=== PATIENT | male | born 1990 | race Caucasian/White ===

== ENCOUNTER → 2017-11-23 14:35 | Outpatient (CLI) | payer BC, SELFPAY ==
[2017-11-23 16:00] LABS: Anion Gap 10 (5-15); BUN 15 mg/dL (7-18); BUN/Creat Ratio 14.3 RATIO (10-20); Calcium,Total 8.7 mg/dL (8.5-10.1); Chloride 105 mmol/L (98-107); Cholesterol 205 mg/dL (200); Creatinine, Serum 1.05 mg/dL (0.70-1.30); EST Glomerular Filtration Rate 91 mL/min (>60); Est Glom Filt Rate - Afr Amer 110 mL/min (>60); Glucose 103 mg/dL (74-106); High Density Lipoprotein 50 mg/dL; Potassium 3.6 mmol/L (3.5-5.1); Sodium Level 142 mmol/L (136-145); Triglycerides 169 mg/dL; Very Low Density Lipoprotein 34 mg/dL (5-40)
== END ==
PROVIDERS: Family Provider Family Medicine; PCP Family Medicine; Visit Provider Family Medicine
DX: Z00.00 Encounter for general adult medical examination without abnormal findings (principal)
CPT/HCPCS: 36415; 80048; 80061

== ENCOUNTER → 2023-02-11 | Outpatient (CLI) | payer BC, SELFPAY ==
[2023-02-11 18:30] LABS: Anion Gap 6 (5-15); BUN 23 mg/dL (7-18); BUN/Creat Ratio 18.5 RATIO (10-20); Calcium,Total 9.1 mg/dL (8.5-10.1); Chloride 106 mmol/L (98-107); Cholesterol 215 mg/dL (200); Creatinine, Serum 1.24 mg/dL (0.70-1.30); EST Glomerular Filtration Rate 72 mL/min (>60); Est Glom Filt Rate - Afr Amer 87 mL/min (>60); Glucose 95 mg/dL (74-106); High Density Lipoprotein 56 mg/dL; Sodium Level 139 mmol/L (136-145); Triglycerides 162 mg/dL; Very Low Density Lipoprotein 32 mg/dL (5-40)
== END | disposition home or self-care (01) ==
LOC: MFPLAB 14:38
PROVIDERS: PCP Family Medicine; Visit Provider Family Medicine
DX: Z00.00 Encounter for general adult medical examination without abnormal findings (principal)
CPT/HCPCS: 36415; 80048; 80061

== ENCOUNTER → 2025-01-26 | Outpatient (CLI) | payer OTHER, SELFPAY ==
[2025-01-26 18:23] LABS: Anion Gap 14 (5-15); BUN 21 mg/dL (4-19); BUN/Creat Ratio 18.3 RATIO (10-20); Calcium,Total 9.7 mg/dL (7.6-11.0); Carbon Dioxide 23.5 mmol/L (21.0-32.0); Chloride 100 mmol/L (98-108); Cholesterol 262 mg/dL (<=200); Glucose 85 mg/dL (70-99); Low Density Lipoprotein Calc. 184 mg/dL; Potassium 3.8 mmol/L (3.3-5.1); Triglycerides 79 mg/dL; Very Low Density Lipoprotein 16 mg/dL (5-40); cholesterol:hdl ratio screen 4.25
== END | disposition home or self-care (01) ==
LOC: MFPLAB 16:34
PROVIDERS: PCP Family Medicine; Referring Provider Family Medicine; Visit Provider Family Medicine
DX: Z00.00 Encounter for general adult medical examination without abnormal findings (principal)
CPT/HCPCS: 36415; 80048; 80061

== ENCOUNTER → 2025-04-13 | Outpatient (CLI) | payer OTHER, SELFPAY ==
--- NOTE | 2025-04-13 16:05 | RAD_ITS ---
PROCEDURE: CHEST PA AND LATERAL 04/13/2025 REASON FOR EXAM: CHEST PAIN X 2 MONTHS TECHNIQUE: Procedure Code: RADCXR Modality: DX Procedure: CHEST PA AND LATERAL COMPARISON: None. FINDINGS: The lungs are clear. The heart borders mediastinum and pulmonary vascular pattern are normal. The upper abdominal bowel gas pattern is normal. There are no bony abnormalities of the chest. RAD/Chest PA and Lateral IMPRESSION: No evidence of acute cardiopulmonary pathology. Reading Location: [place] [id number]
[2025-04-13 17:58] LABS: Hematocrit 43.1 % (40-54); Hemoglobin 15.6 g/dL (13.0-16.5); Immature Granulocytes Count 0.010 X10^3/uL (0.0-0.0); Mean Corp Hgb Conc 36.2 g/dL (32-36); Mean Corpuscular Volume 84.2 fL (80-94); Mean Platelet Vol. 11.4 fl (6.2-12.0); NRBC Flagged by Analyzer 0 % (0-5); Platelet Count 221 K/mm3 (150-450); RBC Distribution Width CV 11.7 % (11.6-14.6); RBC Distribution Width SD 35.5 fl (35.1-43.9); Red Blood Count 5.12 M/mm3 (4.6-6.2); White Blood Count 6.0 K/mm3 (4.4-11.0)
[2025-04-13 18:06] LABS: Anion Gap 13 (5-15); BUN 14 mg/dL (4-19); BUN/Creat Ratio 12.6 RATIO (10-20); Calcium,Total 9.7 mg/dL (7.6-11.0); Carbon Dioxide 25.7 mmol/L (21.0-32.0); Chloride 101 mmol/L (98-108); Glucose 94 mg/dL (70-99); Potassium 4.3 mmol/L (3.3-5.1)
[2025-04-13 18:38] LABS: D-Dimer Quantitative (DVT/PE) 0.27 FEU/ug/m (0.27-0.49)
== END | disposition home or self-care (01) ==
LOC: MTLAB 16:03
PROVIDERS: PCP Family Medicine; Referring Provider Family Medicine; Visit Provider Family Medicine
DX: R07.9 Chest pain, unspecified (principal)
CPT/HCPCS: 36415; 71046; 80048; 85025; 85379

== ENCOUNTER → 2025-04-13 | Outpatient (CLI) | payer OTHER, SELFPAY ==
--- OUTSIDE RECORDS SUMMARY | 2025-04-13 16:45 | XMS RPT_ITS | CCD ---
Author Organization [facility] ion Partnership [facility] Care Team Providers Care Interactive Multimedia Designer Name Role Phone JORDAN MURO Unavailable Unavaila JULIETA Conway Attending Unavailable INC, [facility] Unavailable Davon VASQUEZ, Dr. Carr Primary Care Provider Davon VASQUEZ, Dr. Carr Attending Provider [phone] Davon VASQUEZ, Dr. Carr Referring Provider [phone] Bruno Mays Referring Unavailable Bruno Mays Attending Bruno oYung Primary Care Unavailable Allergies Allergy Classification Reported Allergen(s) Allergy Type Date of Onset Reaction(s) Facility (1 source) CHLORPHENIRAM-DM -ACETAMINOPHEN; Translations: [CHLORPHENIRAM-D M-ACETAMINOPHEN] Propensity to adverse reactions to drug (disorder) 8 [facility] Other [place] Repository Problems Problem Classification Problem Date Documented Da te Episodic/Chronic Coagulation and hemorrhagic disorders (2 sources) Homozygous Factor V Leiden mutation; 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 Nonspecific chest pain (1 source) Chest pain, unspecified; Translations: [Chest pain, unspecified] Onset: 01-09-2018 Episodic Skin and subcutaneous tissue infections (4 sources) Cellulitis of right lower limb; Translations: [Cutaneous abscess of right lower limb] Onset: 01-15-2023 Episodic Results Test Name Value Interpretation Reference Range Facility Anion gap in Serum or Plasma Ordered By: Bruno Mays on 01-26-2025 Anion gap [Moles/Vol] 14 mmol/L 12-01 [facility] BUN/creatinine ratioOrdered By: Bruno Mays on 01-26-2025 Urea nitrogen/Creatinine [Mass ratio] 18.3 mg/mg 05-08 [facility] Basic Metabolic Profile (BMP )on 01-26-2025 BUN/CRE 18.3 RATIO Normal 05-08 [facility] Comment on above: Performed By: #### L 500.2500, L500.4100 #### [facility] [address] [place], [address] Calcium [Mass/Vol] 9.7 mg/dL Normal 7.6-11.0 [facility] Comment on above: Performed By: #### L 500.2500, L500.4100 #### [facility] [address] [place], [address] Chloride [Moles/Vol] 100 mmol/L Normal 98-108 [facility] Comment on above: Performed By: #### L 500.2500, L500.4100 #### [facility] [address] [place], [address] CO2 [Moles/Vol] 23.5 mmol/L Normal 21.0-32.0 [facility] Comment on above: Performed By: #### L 500.2500, L500.4100 #### [facility] [address] [place], [address] Creatinine [Mass/Vol] 1.16 mg/dL Normal 0.70-1.20 [facility] Comment on above: Performed By: #### L 500.2500, L500.4100 #### [facility] [address] [place], [address] GAP 14 Normal 5-15 [facility] Comment on above: Performed By: #### L 500.2500, L500.4100 #### [facility] [address] [place], [address] GFR/1.73 sq M.predicted among non-blacks MDRD (S/P/Bld) [Vol rate/Area] 85 mL/min/{1.73_m2} Normal >60 [facility] Comment on above: Result Comment: mL/m in/1.73m2 CKD-EPI Creatinine Equation (2020) Performed By: #### L 500.2500, L500.4100 #### [facility] [address] [place], [address] Glucose [Mass/Vol] 85 mg/dL Normal 70-99 [facility] Comment on above: Performed By: #### L 500.2500, L500.4100 #### [facility] [address] [place], [address] Potassium [Moles/Vol] 3.8 mmol/L Normal 3.3-5.1 [facility] Comment on above: Performed By: #### L 500.2500, L500.4100 #### [facility] [address] [place], [address] Sodium [Moles/Vol] 137 mmol/L Normal 133-145 [facility] Comment on above: Performed By: #### L 500.2500, L500.4100 #### [facility] [address] [place], [address] Urea nitrogen [Mass/Vol] 21 mg/dL High 4-19 [facility] Comment on above: Performed By: #### L 500.2500, L500.4100 #### [facility] [address] [place], [address] Calculated very low density lipoprotein (VLDL) cholesterol measurementOrdered By: Bruno Mays on 01-26-2025 Calculated very low density lipoprotein (VLDL) cholesterol measurement 16 mg/dL 5-40 [facility] Carbon dioxide, total [Moles /volume] in Central venous bloodOrdered By: Bruno Mays on 01-26-2025 CO2 [Moles/Vol] 23.5 mmol/L 21.0-32.0 [facility] Chloride assayOrdered By: Macario Mays on 01-26-2025 Chloride [Moles/Vol] 100 mmol/L 98-108 [facility] Glomerular filtration rate ( GFR) estimation/1.73 sq m using serum, plasma, or whole bOrdered By: Bruno Mays on 01-26-2025 GFR/1.73 sq M.predicted among non-blacks MDRD (S/P/Bld) [Vol rate/Area] 85 mL/min/{1.73_m2} >60 [facility] Comment on above: mL/min/1.73m2 CKD-EP I Creatinine Equation (2020) LDL calc ser/plasOrdered By: Bruno Mays on 01-26-2025 Cholesterol in LDL [Mass/Vol] 184 mg/dL [facility] Comment on above: Qzkgnltohm=499-651 m g/dL & Higher Luba=547 mg/dL or greater Lipid Profileon 01-26-2025 CHOL:HDL 4.25 Normal [facility] Comment on above: Performed By: #### L 500.2500, L500.4100 #### [facility] [address] [place], [place], [phone] ([phone]) Cholesterol [Mass/Vol] 262 mg/dL High <=200 [facility] Comment on above: Result Comment: Chol esterol level, Desirable <200 mg/dL Borderline high cholesterol 200-239 mg/dL High cholesterol >=240 mg/dL Recommendations of the NCEP Adult Treatment Panel for the following risk-cutoff thresholds for the [place] Stateless population. Performed By: #### L 500.2500, L500.4100 #### [facility] [address] [place], [place], [phone] (634) Cholesterol in HDL [Mass/Vol] 62 mg/dL Normal [facility] Comment on above: Result Comment: Tammy onal Cholesterol Education Program (NCEP) guidelines: <40 mg/dL: Low HDL-cholesterol (major risk factor for CHD) >= 60 mg/dL: High HDL-cholesterol (negative risk factor for CHD) HDL-cholesterol is affected by a number of factors, e.g. smoking, exercise, hormones, sex and age. Performed By: #### L 500.2500, L500.4100 #### [facility] [address] [place], [place], [phone]) Cholesterol in LDL [Mass/Vol] 184 mg/dL Normal [facility] Comment on above: Result Comment: Bord wztsni=176-778 mg/dL Higher Ozcv=232 mg/dL or greater Performed By: #### L 500.2500, L500.4100 #### [facility] [address] [place], [address] Cholesterol in VLDL [Mass/Vol] 16 mg/dL Normal 5-40 [facility] Comment on above: Performed By: #### L 500.2500, L500.4100 #### [facility] [address] [place], [address] Triglyceride [Mass/Vol] 79 mg/dL Normal [facility] Comment on above: Result Comment: The drugs N-Acetylcysteine and Metamizole may falsely depress this assay. Normal range: <150 mg/dL Borderline High: 150-199 mg/dL High: 200-499 mg/dL Very High: >500 mg/dL Performed By: #### L 500.2500, L500.4100 #### [facility] [address] [place], [address] Potassium measurement (mass/ volume)Ordered By: Bruno Mays on 01-26-2025 Potassium (Unsp spec) [Mass/Vol] 3.8 mmol/L 3.3-5.1 [facility] Screening total cholesterol/ high density lipoprotein (HDL) cholesterol ratioOrdered By: Bruno Mays on 01-26-2025 Cholesterol.total/Cho lesterol in HDL [Mass ratio] 4.25 {ratio} [facility] Serum creatinine measurement (mass/volume)Ordered By: Bruno Mays on 01-26-2025 Creatinine [Mass/Vol] 1.16 mg/dL 0.70-1.20 [facility] Serum glucose measurement (m ass/volume)Ordered By: Bruno Mays on 01-26-2025 Glucose [Mass/Vol] 85 mg/dL 70-99 [facility] Serum or plasma calcium sourav urement (mass/volume)Ordered By: Bruno Mays on 01-26-2025 Calcium [Mass/Vol] 9.7 mg/dL 7.6-11.0 [facility] Serum or plasma cholesterol in HDL measurement (mass/volume)Ordered By: Bruno Mays on 01-26-2025 Cholesterol in HDL [Mass/Vol] 62 mg/dL >40 [facility] Comment on above: National Cholesterol Education Program (NCEP) guidelines:<40 mg/dL: Low HDL-cholesterol (major risk factor for CHD)>= 60 mg/dL: High HDL-cholesterol (negative risk factor for CHD)HDL-cholesterol is affected by a number of factors, e.g. smoking, exercise, hormones, sex and age. Serum or plasma cholesterol measurement (mass/volume)Ordered By: Bruno Mays on 01-26-2025 Cholesterol [Mass/Vol] 262 mg/dL High <201 [facility] Comment on above: Cholesterol level, D esirable <200 mg/dLBorderline high cholesterol 200-239 mg/dLHigh cholesterol >=240 mg/dLRecommendations of the NCEP Adult Treatment Panel for the following risk-cutoff thresholds for the [place] Stateless population. Serum or plasma urea nitroge n measurement (mass/volume)Ordered By: Bruno Mays on 01-26-2025 Urea nitrogen [Mass/Vol] 21 mg/dL High 4-19 [facility] Sodium levelOrdered By: Bruno Mays on 01-26-2025 Sodium [Moles/Vol] 137 mmol/L 133-145 [facility] Triglycerides measurementOrd ered By: Bruno Mays on 01-26-2025 Triglyceride [Mass/Vol] 79 mg/dL <199 [facility] Comment on above: The drugs N-Acetylcy steine and Metamizole may falsely depress this assay. Normal range: <150 mg/dLBorderline High: 150-199 mg/dLHigh: 200-499 mg/dLVery High: >500 mg/dL Basophil percentageOrdered B y: Bruno Mays on 02-11-2023 Chloride [Moles/Vol] 106 mmol/L 98-107 [facility] Cholesterol [Mass/Vol] 215 mg/dL <200 [facility] Comment on above: <200 mg/dL Desirable 200-240 mg/dL Borderline >240 mg/dL High Risk Glucose [Mass/Vol] 95 mg/dL 74-106 [facility] Potassium [Moles/Vol] 4.0 mmol/L 3.5-5.1 [facility] Sodium [Moles/Vol] 139 mmol/L 136-145 [facility] Triglyceride [Mass/Vol] 162 mg/dL <199 [facility] Comment on above: The drugs N-Acetylcy steine and Metamizole may falsely depress this assay.Serum Triglycerides Reference Interval Normal <150 mg/dL Borderline high 150 - 199 mg/dL High 200 - 499 mg/dL Very High > or = 500 mg/dL Laboratory - Chemistry and C hemistry - challengeOrdered By: Bruno Mays on 02-11-2023 CO2 [Moles/Vol] 27.0 mmol/L 21.0-32.0 [facility] Urea nitrogen/Creatinine [Mass ratio] 18.5 mg/mg 10-20 [facility] No Panel InformationOrdered By: Bruno Mays on 02-11-2023 Estimated GFR (MDRD) Amer 87 mL/min >60 [facility] Comment on above: GFR Calc Estimated GFR (MDRD) Non-Af Amer 72 mL/min >60 [facility] Comment on above: Non- GFR Calc Serum or plasma calcium sourav urement (mass/volume)Ordered By: Bruno Mays on 02-11-2023 Calcium [Mass/Vol] 9.1 mg/dL 8.5-10.1 [facility] Serum or plasma cholesterol in HDL measurement (mass/volume)Ordered By: Bruno Mays on 02-11-2023 Cholesterol in HDL [Mass/Vol] 56 mg/dL >40 [facility] Comment on above: The drugs N-Acetylcy steine and Metamizole may falsely depress this assay. Reference Range HDL <40 mg/dL Low HDL Cholesterol HDL >or= 60 mg/dL High HDL Cholesterol Serum or plasma cholesterol in VLDL measurement (mass/volume)Ordered By: Bruno Mays on 02-11-2023 Cholesterol in VLDL [Mass/Vol] 32 mg/dL 5-40 [facility] Serum or plasma creatinine m easurement (mass/volume)Ordered By: Bruno Mays on 02-11-2023 Creatinine [Mass/Vol] 1.24 mg/dL 0.70-1.30 [facility] Comment on above: The validity of the calculated GFR & GFRAA in patients over 70 years has not been determined. Clinical correlation is essential. Serum or plasma low density lipoprotein (LDL) cholesterol measurement (mass/volume)Ordered By: Bruno Mays on 02-11-2023 Cholesterol in LDL [Mass/Vol] 127 mg/dL 0-130 [facility] Serum or plasma urea nitroge n measurement (mass/volume)Ordered By: Bruno Mays on 02-11-2023 Urea nitrogen [Mass/Vol] 23 mg/dL 7-18 [facility] Thin prep Papanicolaou smear with manual screeningOrdered By: Bruno Mays on 02-11-2023 Thin prep Papanicolaou smear with manual screening 6 5-15 [facility] Office Visiton 01-15-2023 Follow-up visit [id number] FloresPiedad morris kamran 1990 M Date Provider Department Center 01/15/2023 [id number] CASTILLO [facility]IR None No family history on file Level of Service:[address] [place] OFFICE/OUTPATIENT [facility] 30-44 MINUTES Reason for Visit and Comments: Abscess Drainage [618] - Painful, on leg, first noticed 4 days ago. Feels numb/tingly Normal [facility] PATINSon 01-15-2023 PATINS If you develop any worsening/severe pain, fever or chills, increasing redness or swelling - please be evaluated in the emergency room immediately Ok for warm compress 2x daily Cleans daily with soap and water, apply bacitracin ointment Normal [facility] Progress Noteon 01-15-2023 Progress Note Chief Complaint Patient presents with Abscess Drainage Painful, on leg, first noticed 4 days ago. Feels numb/tingly No LMP for male patient. History: No past medical history on file. No past surgical history on file. No family history on file. Social History Socioeconomic History Marital status: Single Tobacco Use Smoking status: Never Smokeless tobacco: Never Vaping Use Vaping Use: Never used Allergies: No Known Allergies Medications: Current Outpatient Medications on File Prior to Visit Medication Sig Dispense Refill aspirin 325 MG tablet Take 325 mg by mouth daily. loratadine (Claritin) 10 MG tablet Take by mouth. No current facility-administered medications on file prior to visit. HPI: HPI Wound on L calf Has been a little bump there for like 1 year Never thought anything of it 4 days ago, fluid came out it Then got worse Went from being very small to much bigger and red Now feels a little numb and tingling ROS: Review of Systems Constitutional: Negative for chills and fever. Skin: Positive for color change and wound. exam: BP (!) 141/85 Pulse 88 Temp 37 ?C (98.6 ?F) (Oral) Ht 6' (1.829 m) Wt 180 lb (81.6 kg) SpO2 96% BMI 24.41 kg/m? Physical Exam Vitals reviewed. Constitutional: General: He is not in acute distress. Appearance: Normal appearance. He is not ill-appearing, toxic-appearing or diaphoretic. HENT: Head: Normocephalic and atraumatic. Cardiovascular: Rate and Rhythm: Normal rate. Pulmonary: Effort: No respiratory distress. Musculoskeletal: General: Tenderness present. Skin: General: Skin is warm and dry. Capillary Refill: Capillary refill takes less than 2 seconds. Findings: Erythema and lesion present. No rash. Comments: R posterior calf with ~ 1cm warm, fluctuant lesion with surrounding induration and erythema Mildly TTP. Neurological: Mental Status: He is alert and oriented to person, place, and time. Assessment and Plan: Daniela was seen today for abscess drainage. Diagnoses and all orders for this visit: Cellulitis and abscess of right lower extremity (Primary) - doxycycline (Vibra-Tabs) 100 MG tablet; Take 1 tablet (100 mg) by mouth 2 times daily for 7 days. Diagnosis: abscess - Location: R calf Procedure: Incision & drainage Informed consent: Discussed risks (infection, pain, bleeding, bruising, numbness, and recurrence of the condition) and benefits of the procedure, as well as the alternatives. Informed consent was obtained. Anesthesia: topical ethyl chloride The area was prepared and draped in a standard fashion. Area was cleaned with betadine and alcohol. 11 blade scalpel used to make ~0.3mm incision. The lesion drained pus and blood. The patient tolerated the procedure well. The patient was instructed on post-op care and s/s that would require emergency room evaluation. Rx for doxycycline sent to pharmacy. Normal [facility] CBC and Differentialon 01-09 Abs Baso <0.03 Normal <0.11 [facility] Comment on above: Performed By: #### D DMER, CMP, CBCDIF ####[facility] [address] [place], [place] [phone] Abs Imperial 1.01 k/uL High <0.87 [facility] Comment on above: Performed By: #### D DMER, CMP, CBCDIF ####[facility] [address] [place] [address] Abs Neut 2.43 k/uL Normal 1.45-7.50 [facility] Comment on above: Performed By: #### D DMER, CMP, CBCDIF ####[facility] [address] [place] [address] Basophils/100 WBC Auto (Bld) 0.2 % Normal [facility] Comment on above: Performed By: #### D DMER, CMP, CBCDIF ####[facility] [address] [place] [address] Eosinophils 0.03 10*3/uL Normal <0.46 [facility] Comment on above: Performed By: #### D DMER, CMP, CBCDIF ####[facility] [address] [place] [address] Eosinophils/100 leukocytes 0.7 % Normal [facility] Comment on above: Performed By: #### D DMER, CMP, CBCDIF ####[facility] [address] [place] [address] Erythrocyte distribution width Auto Ratio (RBC) 12.2 % Normal 11.5-15.0 [facility] Comment on above: Performed By: #### D DMER, CMP, CBCDIF ####[facility] [address] [place] [address] Erythrocytes (RBC) 5.08 10*6/uL Normal 4.20-6.00 [facility] Comment on above: Performed By: #### D DMER, CMP, CBCDIF ####[facility] [address] [place] [address] Hematocrit (HCT) 40.8 % Normal 39.0-51.0 [facility] Comment on above: Performed By: #### D DMER, CMP, CBCDIF ####[facility] [address] [place] [address] Hemoglobin mass conc (Bld) 15.3 g/dL Normal 13.0-17.0 [facility] Comment on above: Result Comment: Rech ecked Performed By: #### D DMER, CMP, CBCDIF ####[facility] [address] [place] [address] Lymphocytes 1.00 10*3/uL Normal 1.00-4.00 [facility] Comment on above: Performed By: #### D DMER, CMP, CBCDIF ####[facility] [address] [place] [address] Lymphocytes/100 leukocytes 22.3 % Normal [facility] Comment on above: Performed By: #### D DMER, CMP, CBCDIF ####[facility] [address] [place] [address] MCH 30.1 pG Normal 26.0-34.0 [facility] Comment on above: Performed By: #### D DMER, CMP, CBCDIF ####[facility] [address] [place] [address] MCHC mass conc (RBC) 37.5 g/dL High 30.5-36.0 [facility] Comment on above: Performed By: #### D DMER, CMP, CBCDIF ####[facility] [address] [place] [address] MCV 80.3 fL Normal 80.0-100.0 [facility] Comment on above: Performed By: #### D DMER, CMP, CBCDIF ####[place] [address] Monocytes/100 leukocytes 22.5 % Normal [facility] Comment on above: Performed By: #### D DMER, CMP, CBCDIF ####[facility] [address] [place] [address] Neutrophils/100 WBC Auto (Bld) 54.3 % Normal [facility] Comment on above: Performed By: #### D DMER, CMP, CBCDIF ####[facility] [address] [place] [address] Platelets 140 10*3/uL Low 150-400 [facility] Comment on above: Performed By: #### D DMER, CMP, CBCDIF ####[facility] [address] [place] [address] WBC (Leukocytes) 4.48 10*3/uL Normal 3.70-11.00 [facility] Comment on above: Performed By: #### D DMER, CMP, CBCDIF ####[facility] [address] [place] [phone] CT CHEST W IVCON PEon 2017 CT CHEST W IVCON PE * * *Final Report* * *DATE OF EXAM: Jan 09 2018 10:36AM [place] [id number] - CT CHEST W IVCON PE / REASON: PE suspected, intermediate prob, positive D-dimer * * * * Physician Interpretation * * * * EXAMINATION: CHEST CT WITH CONTRAST (PULMONARY EMBOLISM PROTOCOL)CLINICAL HISTORY: PE suspected, intermediate prob, positive D-dimerTechnique: Spiral CT acquisition of the chest from the thoracic inlet to the upper abdomen following IV contrast.MQ: CTCPER_4Contrast: 100 mL Omnipaque 350 IVCT Dose-Length Product: 392 mGy*cmCT Dose Reduction Employed: Automated exposure control (AEC)Comparison: Type of study and date/timeRESULT:Limitations : None.Evaluation for thromboembolic disease: - Right heart chambers: No thromboembolic disease. - Main pulmonary arteries: No thromboembolic disease. - Lobar pulmonary arteries: No thromboembolic disease. - Segmental pulmonary arteries: No thromboembolic disease. - Subsegmental pulmonary arteries: No thromboembolic disease.Lines, tubes, and devices: None.Lung parenchyma and pleura: No consolidation. No suspicious pulmonary nodule. No pleural effusion. Central airways are patent.Thoracic inlet, heart, and mediastinum: No lymphadenopathy in the axillary, mediastinal, or hilar regions. The thoracic aorta and main pulmonary artery are normal in caliber. The cardiac chambers are normal in size. No coronary artery atherosclerotic calcifications are noted, although the study is not optimized for coronary assessment. No pericardial effusion or thickening.Bones and soft tissues: No destructive bone lesion. Chest wall is unremarkable.Upper abdomen: Suspected splenomegaly, but incompletely visualized.IMPRESSION:No CT evidence of pulmonary embolism.Probable splenomegaly.Transcriptioni st: [facility] Transcribe Date/Time: Jan 09 2018 10:39ADictated by : FERN COVARRUBIAS MDThis examination was interpreted and the report reviewed and electronically signed by: FERN COVARRUBIAS MD on Jan 09 2018 10:42AM [id number] Normal [facility] Comp Metabolic Panelon 01-09 Alanine aminotransferase (ALT) 19 U/L Normal 10-54 [facility] Comment on above: Performed By: #### D DMER, CMP, CBCDIF ####[facility] [address] [place] [address] Albumin 4.6 g/dL Normal 3.9-4.9 [facility] Comment on above: Performed By: #### D DMER, CMP, CBCDIF ####[facility] [address] [place] [address] Alkaline phosphatase (ALP) 60 U/L Normal 36-108 [facility] Comment on above: Performed By: #### D DMER, CMP, CBCDIF ####[facility] [address] [place] [address] Anion gap 13 mmol/L Normal 9-18 [facility] Comment on above: Performed By: #### D DMER, CMP, CBCDIF ####[facility] [address] [place] [address] Aspartate aminotransferase (AST) 20 U/L Normal 14-40 [facility] Comment on above: Performed By: #### D DMER, CMP, CBCDIF ####[facility] [address] [place] [address] Bilirubin (total) 0.7 mg/dL Normal 0.2-1.3 [facility] Comment on above: Performed By: #### D DMER, CMP, CBCDIF ####[facility] [address] [place] [address] Calcium 9.7 mg/dL Normal 8.5-10.2 [facility] Comment on above: Performed By: #### D DMER, CMP, CBCDIF ####[facility] [address] [place] [address] Chloride 99 mmol/L Normal 97-105 [facility] Comment on above: Performed By: #### D DMER, CMP, CBCDIF ####[facility] [address] [place] [address] CO2 25 mmol/L Normal 22-30 [facility] Comment on above: Performed By: #### D DMER, CMP, CBCDIF ####[facility] [address] [place] [address] Creatinine 1.08 mg/dL Normal 0.73-1.22 [facility] Comment on above: Performed By: #### D DMER, CMP, CBCDIF ####[facility] Zz[address]kvo2787 [phone] eGFR (non-black) mL/min/{1.73_m2} Normal [facility] Comment on above: Result Comment: eGFR (Estimated GFR) Units of measure: mL/min/1.73 meters squaredeGFR is derived from the reexpressed MDRD Study equation using the following parameters: serum creatinine, age, gender and race. The creatinine assay has been calibrated to be traceable to IDMS.An eGFR <60 mL/min/1.73m2 for >3 months is consistent with chronic kidney disease. Refer to KDOQI guidelines for clinical interpretation.In patients with unstable renal function, e.g. those with acute kidney injury, the eGFR may not accurately reflect actual GFR. Performed By: #### D DMER, CMP, CBCDIF ####[facility] [address]7553 [address] Glucose mass conc 97 mg/dL Normal 74-99 [facility] Comment on above: Result Comment: The Stateless Diabetes Association (ADA) provides guidance for cutoff values for fasting glucose and random glucose. The ADA defines fasting as no caloric intake for at least 8 hours. Fasting plasma glucose results between 100 to 125 mg/dL indicate increased risk for diabetes (prediabetes).Fasting plasma glucose results greater than or equal to 126 mg/dL meet the criteria for diagnosis of diabetes. In the absence of unequivocal hyperglycemia, results should be confirmed by repeat testing. In a patient with classic symptoms of hyperglycemia or hyperglycemic crisis, random plasma glucose results greater than or equal to 200 mg/dL meet the criteria for diagnosis of diabetes.Reference: Standards of Medical Care in Diabetes 2016, Stateless Diabetes Association. Diabetes Care. 2016.39(Suppl 1). Performed By: #### D DMER, CMP, CBCDIF ####[facility] [address] [place] [phone] Potassium molar conc 4.0 mmol/L Normal 3.7-5.1 [facility] Comment on above: Performed By: #### D DMER, CMP, CBCDIF ####[facility] Yz[address]xfqct7896 [phone] Protein 7.1 g/dL Normal 6.3-8.0 [facility] Comment on above: Performed By: #### D DMER, CMP, CBCDIF ####[facility] [address] [place] [address] Sodium 137 mmol/L Normal 136-144 [facility] Comment on above: Performed By: #### D DMER, CMP, CBCDIF ####[facility] [address] [place] [address] Urea nitrogen 13 mg/dL Normal 9-24 [facility] Comment on above: Performed By: #### D DMER, CMP, CBCDIF ####[facility] [address] [place] [address] D dimeron 01-09-2018 D dimer 920 ng/mL FEU High 0-500 [facility] Comment on above: Result Comment: The D-dimer assay can be used to exclude pulmonary embolism (PE) and deep vein thrombosis (DVT) in conjunction with a low pre-test probability.For patients with a suspected DVT, a D-dimer level below 500 ng/mL FEU has a negative predictive value of 99.2%, a sensitivity of 98.9%, and a specificity of 36.1%. For patients with a suspected PE, a D-dimer level below 500 ng/mL FEU has a negative predictive value of 99.1%, a sensitivity of 97.8%, and a specificity of 41.7%. Performed By: #### D DMER, CMP, CBCDIF ####[facility] [address] [place] [address] ED NOTEon 01-09-2018 ED NOTE HNO ID: [id number] thor: Christina Collins) Chad Nicholas: (none)Author Type: Registered NurseType: ED NotesFiled: 01/09/2018 11:34 AMNote Text: Patient in stable condition upon discharge. resp even and unlabored. Nodistress noted. Patient denies any complaints at this time. Discharge andfollow up reviewed, plan of care is agreed upon. Patient thankful for careupon discharge Normal [facility] ED NOTE HNO ID: [id number] thor: Rachael Collins) Braden, RNService: (none)Author Type: Registered NurseType: ED NotesFiled: 01/09/2018 9:13 AMNote Text:Pt has a hx of factor 5, last night pt was sitting at a desk and got achest pain to the left side of his chest and left side of back, describedas aching and stabbing, worse when he is laying down. Pt states he is notsob. Pt stated he brother recently has blood clots in chest, armpit, andneck. Pt took tylenol today [facility] ED PROV NOTEon 01-09-2018 ED PROV NOTE HNO ID: [id number] thor: Jordan Muro, MDService: (none)Author Type: PhysicianType: ED Provider NotesFiled: 01/09/2018 11:24 AMNote Text:ED Provider NotePatient Name: Daniela FloresMRN: [id number] DATE: 01/09/18HistoryPatient presents with:Chest Pain: pt has left side chest pain and back pain, pt has factor 5The patient presents for evaluation of an episode of sharp left-sidedchest pain that he had last evening he states his symptoms have completelyresolved he is concerned because he has a history of factor V deficiencyhe himself denies prior history of thromboembolic disease however. He hank nonsmoker denies fever chills or cough. Denies leg pain or leg swellingdenies palpitations. He is not complaining of shortness of breath. Henow presents for evaluation. He denies known history of coronary disease.PAST MEDICAL HISTORYDiagnosis Date- Factor V Leiden carrier (HCC)No past surgical history on file.No family history on file.Social HistorySocial History Main Topics- Smoking status: Never Smoker- Smokeless tobacco: Never Used- Alcohol use No- Drug use: No- Sexual activity: Not on fileALLERGIESAllergen Reactions- Triaminic [Chlorphe* Unknown Pt states he takes acetaminophen with no reactionReview of SystemsConstitutional: Negative.HENT: Negative.Eyes: Negative.Respiratory: Negative.Cardiovascular: Positive for chest pain. Negative for palpitations and legswelling.Gastrointestina l: Negative.Genitourinary: Negative.Musculoskeletal: Negative.Skin: Negative.Neurological: Negative.Psychiatric/Behavi oral: Negative.Physical ExamBP 153/94 Pulse 70 Temp (Src) 98.8 (Oral) Resp 18 Ht 6' 0" (1.83m) Wt 170 lb (77.1kg) SpO2 97% BMI 23.05 kg/(m2).Physical ExamConstitutional: He is oriented to person, place, and time. He appearswell-developed and well-nourished. No distress.HENT:Head: Normocephalic and atraumatic.Nose: Nose normal.Eyes: EOM are normal. Pupils are equal, round, and reactive to light.Right eye exhibits no discharge. Left eye exhibits no discharge.Neck: Neck supple. No tracheal deviation present.Cardiovascular: Normal rate, regular rhythm, normal heart sounds andintact distal pulses.Pulmonary/Chest: Effort normal and breath sounds normal. No respiratorydistress.Abdomin al: Soft. Bowel sounds are normal. There is no tenderness.Musculoskeletal: Normal range of motion. He exhibits no edema, tendernessor deformity.Neurological: He is alert and oriented to person, place, and time. Nocranial nerve deficit or sensory deficit. He exhibits normal muscle tone.Skin: Skin is warm and dry. No rash noted.Psychiatric: He has a normal mood and affect. His behavior is normal.Judgment and thought content normal.Diagnostic TestingED Labs Ordered and Reviewed - No data to displayProceduresMedical Decision MakingMDMEKG shows a sinus rhythm rate 58 without evidence of acute ST abnormality. Chest x-ray shows no acute abnormality. Comprehensive metabolic panelunremarkable. D-dimer 920. Initial high sensitivity troponin less than6. White count normal hemoglobin 15. CT scan of the chest shows noevidence of pulmonary embolism. Repeat high sensitivity troponin stillless than 6. Patient is low risk for heart disease. He is asymptomaticwas discharged home in stable condition advised to follow-up with PCPreturn if any problem.ED Course / Clinical ImpressionPlanDischarged home stable conditionSIGNATURE: Nakul Mccormick MD01/09/18 1124 Normal [facility] EKGon 01-09-2018 EKG NAME : DANIELA FLORES NPID : [id number] : 1990 Gender : MaleRace : UnknownORD : [id number] Procedure Date : Jan 09 2018 09:18:41Edit Date : Jan 12 2018 09:10:52 Diagnosis:SINUS BRADYCARDIA WITH SINUS ARRHYTHMIAOTHERWISE NORMAL ECGNO PREVIOUS ECGS AVAILABLEConfirmed by MD Joao, New ([id number]) on 01/12/2018 9:10:44 AM Ventricular Rate : 58 BPMAtrial Rate : 58 BPMP-R Interval : 142 msQRS Duration : 102 msQ-T Interval : 390 msQTC Calculation(Bezet) : 382 msP [place] : 47 degreesR [place] : 68 degreesT [place] : 44 degrees Test Reason : Arrhythmia Location : 1 : ER ED5 Overread By : MD Joao,LolabEdited By : MD Joao,LolabReferred By : ,Acquired by : LL, Normal [facility] High Sens Troponin Ton 01-09 High Sensitivity JONNIE <6 Normal <12 [facility] Comment on above: Result Comment: When assessing risk for acute coronary syndromes: In patients undergoing blood draw greater than or equal to 2 hours from symptom onset, with history of very low to moderate risk and non-ischemic ECG, an initial hs-Troponin T less than 12 ng/L AND a 1 hour delta hs-Troponin T less than 3 ng/L should be considered very low risk for 30 day MACE. Performed By: #### H STNT ####[facility] [address] [place] [phone] High Sensitivity JONNIE <6 Normal <12 [facility] Comment on above: Result Comment: When assessing risk for acute coronary syndromes: In patients undergoing blood draw greater than or equal to 2 hours from symptom onset, with history of very low to moderate risk and non-ischemic ECG, an initial hs-Troponin T less than 12 ng/L AND a 1 hour delta hs-Troponin T less than 3 ng/L should be considered very low risk for 30 day MACE. Performed By: #### H STNT ####[facility] [phone] XR CHEST 2V FRONTAL/LATon XR CHEST 2V FRONTAL/LAT * * *Final Report* * *DATE OF EXAM: Jan 09 2018 9:42AM MDX [id number] - XR CHEST 2V FRONTAL/LAT / REASON: Shortness of breath * * * * Physician Interpretation * * * * CHEST RADIOGRAPH (2 VIEW FRONTAL and LATERAL)Indications: Shortness of breathM: XC2_1Comparison: None.RESULTS:Lines, Tubes, and Devices: None.Lungs and Pleura: No focal consolidation, pleural effusion, or pneumothorax.Cardiomediasti nal silhouette: Normal size.Other: Osseous structures are intact.IMPRESSION:No acute radiographic abnormality.Transcriptionis t: PSCB Transcribe Date/Time: Jan 09 2018 9:44ADictated by : BOAZ ARZOLA MDThis examination was interpreted and the report reviewed and electronically signed by: BOAZ ARZOLA MD on Jan 09 2018 9:44AM [id number] Normal [facility] Encounters Encounter Date Encounter Type Care Provider Facility Start: 02-16-2025 Encounter for genera l adult medical examination without abnormal findings Bruno Mays [facility] Start: 01-26-2025 End: 01-26-[address] Bruno Mays MD Work Phone: -Laboratory [facility] Start: 01-26-2025 End: 01-26-[address] Bruno Mays MD -Laboratory [facility] Start: 01-26-2025 End: 01-26-2025 ambulatory Bruno Mays Facility:[facility] Start: 02-11-2023 End: 02-11-2023 ambulatory [facility] Work Phone: Start: 02-11-2023 End: 02-11-2023 Patient encounter procedure [facility] Start: 01-15-2023 End: 01-15-2023 ambulatory [facility] Start: 01-09-2018 End: 01-09-2018 [facility] department [facility] Payers Date Payer Category Payer Private Health Insurance [id number] 2025 Self-pay [id number] 2022 Unknown [id number] Private Health Insurance 999 [id number] Unknown [id number] Social History Date Type Detail Facility [facility]: [facility] Start: 1990 Sex Assigned At Male [facility] Start: 11-26-2016 [facility] Evaluation note Note Date & Type Note Facility Evaluation note No assessment information availa ble [facility] Work Phone: Reason for referral (narrative) Note Date & Type Note Facility Reason for referral (narrative) No reason for referral information available [facility] Work Phone: Summary Purpose Family History No Family History Records FoundNo Family History Records FoundNo Family History Records Found Advance Directives No Advanced Directives Records FoundNo Advanced Directives Records FoundNo Advanced Directives Records Found Additional Source Comments (unrecognized sect ion and content) No Status Records FoundNo Status Records FoundNo Status Records Found INFORMATION SOURCE (unrecogn ized section and content) DATE CREATED AUTHOR 01/12/2018 [facility] DATE CREATED AUTHOR AUTHOR'S ORGANIZ ATION 01/16/[address] [facility] DATE CREATED AUTHOR AUTHOR'S ORGANIZ ATION 02/18/2025 [facility] Care Teams (unrecognized sec tion and content) Team Status: Active Member Role Status Dates Dr. Bruno Mays MD Family Provider Active Dr. Bruno Mays MD Primary Care Provider Active Team Status: Inactive Member Role Status Dates Dr. Bruno Mays MD Primary Care Provider, Attending Provider Active Team Status: Active Member Role/Relationship Status Dates Dr. Bruno Mays MD Family Provider Active Dr. Bruno Mays MD Primary Care Provider Active Team Status: Inactive Member Role/Relationship Status Dates Dr. Bruno Mays MD Primary Care Provider Active Start: January 26, 2025 End: January 26, 2025 Dr. Bruno Mays MD Attending Provider Active Start: January 26, 2025 End: January 26, 2025 Dr. Bruno Mays MD Referring Provider Active Start: January 26, 2025 End: January 26, 2025 Goals (unrecognized section and content) Goals may be documented in a n alternate sectionGoals may be documented in an alternate section FOR RECORDS PERTAINING TO PATIENTS WHO ARE OR HAVE BEEN ENROLLED IN A CHEMICAL DEPENDENCY/SUBSTANCEABUSE PROGRAM, SOME INFORMATION MAY BE OMITTED. This clinical summary was aggregated from multiple sources. Caution should be exercised in using it in the provision of clinical care. This summary normalizes information from multiple sources, and as a consequence, information in this document may materially change the coding, format and clinical context of patient data. In addition, data may be omitted in some cases. CLINICAL DECISIONS SHOULD BE BASED ON THE PRIMARY CLINICAL RECORDS. [employer] provides no warranty or guarantee of the accuracy or completeness of information in this document.
== END | disposition home or self-care (01) ==
LOC: MFPLAB 15:10
PROVIDERS: PCP Family Medicine; Visit Provider Family Medicine
DX: Z00.00 Encounter for general adult medical examination without abnormal findings (principal)